=== PATIENT | female | born 2000 | race Caucasian/White ===

== ENCOUNTER 2025-04-26 18:26 | Emergency (ER) | payer OTHER ==
[~2025-04-26] VITALS: Wt 66.6 kg
[2025-04-26 19:05] LABS: BASO # 0.1 10*3/uL (0.0-0.1); BASO % 0.6 % (0.0-1.0); EOS # 0.6 10*3/uL (0.0-0.4); EOS % 6.0 % (1.0-4.0); MEAN CELL VOLUME 88.3 fl (81.0-99.0); MEAN CORPUSCULAR HGB 29.3 pg (27.0-31.0); MEAN PLATELET VOLUME 10.4 fl (9.6-12.3); MONO # 0.5 10*3/uL (0.1-1.0); MONO % 5.1 % (3.0-9.0); NEUT # 4.6 10*3/uL (2.3-7.9); NEUT % 45.9 % (47.0-73.0); NUCLEATED RED BLOOD CELL 0.0 % (0.0-0.0); NUCLEATED RED BLOOD CELL 0.0 10*3/uL (0.0-0.0); PLATELET COUNT AUTOMATED 284 10*3/uL (130-400); RED CELL DISTRI WIDTH 12.2 % (0-14.5)
[2025-04-26 19:34] LABS: ACT PARTIAL THROMBO TIME 24.7 SECONDS (20.0-32.1)
[2025-04-26 19:50] LABS: CPK 28 U/L (34-171); MYOGLOBIN 15.0 ng/ml (13-71)
[2025-04-26 19:50] LABS: BILIRUBIN Negative (Negative); BLOOD Negative (Negative); CLARITY Clear (Clear); COLOR Yellow (Yellow); KETONE Negative (Negative); LEUKO ESTERASE Trace (Negative); NITRITE Negative (Negative); PH 6.5 (4.5-8.0); SPECIFIC GRAVITY <= 1.005 (1.001-1.030); UROBILINOGEN 0.2 E.U./dl (0.0-1.0)
[2025-04-26 19:53] LABS: B-hCG (QUALITATIVE) NEGATIVE (NEGATIVE); BUN 7 mg/dl (9-23); SGPT/ALT 19 U/L (5-49)
[2025-04-26 20:04] LABS: BACTERIA 1+; RBC 0-2 rbc/hpf (0-2); YEAST TRACE
[2025-04-26] MEDS ORDERED: IOHEXOL 350 MG/ML 100 ML VIAL IV ONE ×2 (21:00→21:24)
[2025-04-26] MEDS ORDERED: SODIUM CHLORIDE 0.9% 100 ML BAG IV ONE (21:00)
[2025-04-26] MEDS ORDERED: SODIUM CHLORIDE 0.9% 100 ML IV ONE (21:24)
== END 2025-04-27 00:47 | disposition left against medical advice (07) ==
LOC: ED 18:26
PROVIDERS: Emergency Medicine; Internal Medicine
DX: R40.4 Transient alteration of awareness (principal); M25.562 Pain in left knee; Z53.29 Procedure and treatment not carried out because of patient's decision for other reasons